=== PATIENT | female | born 1970 | race Caucasian/White ===

== ENCOUNTER 2018-01-01 15:17 | Emergency (ER) | payer OTHER ==
[~2018-01-01] VITALS: Ht 165.1 cm; Wt 83.9 kg
== END 2018-01-01 17:39 | disposition home or self-care (01) ==
LOC: ER 15:17
DX: I10 Essential (primary) hypertension (principal)

== ENCOUNTER 2022-10-19 00:11 | Emergency (ER) | payer OTHER ==
[~2022-10-19] VITALS: Ht 165.1 cm; Wt 91.6 kg
[2022-10-19] MEDS ORDERED: PEPCID AC20 MG PO (03:52)
[2022-10-19] MEDS ORDERED: LEVSIN/SL0.125 MG SL (03:52)
== END 2022-10-19 04:06 | disposition home or self-care (01) ==
LOC: ER 00:11
DX: R10.11 Right upper quadrant pain (principal); K80.20 Calculus of gallbladder without cholecystitis without obstruction; K76.0 Fatty (change of) liver, not elsewhere classified; Z88.2 Allergy status to sulfonamides; Z88.1 Allergy status to other antibiotic agents; R11.0 Nausea

== ENCOUNTER 2022-10-27 11:18 | Inpatient (IN) | payer OTHER ==
[~2022-10-27] VITALS: Ht 165.1 cm; Wt 90.7 kg
[~2022-10-27 11:18] MED LIST: LEVSIN/SL0.125 MG SL; PEPCID AC20 MG PO
== END 2022-10-29 13:11 | disposition home or self-care (01) | DRG 419 ==
LOC: ER 11:18 → SEC-K 17:38 → MEDJ 17:38
PROVIDERS: Surgery; ADMIT Internal Medicine; ATTEND Internal Medicine
PROC: BF37ZZZ Magnetic Resonance Imaging (MRI) of Pancreas (ICD-10-PCS; 2022-10-27)
PROC: BW40ZZZ Ultrasonography of Abdomen (ICD-10-PCS; 2022-10-27)
PROC: 0FT44ZZ Resection of Gallbladder, Percutaneous Endoscopic Approach (ICD-10-PCS; principal; 2022-10-28 20:00)
DX: K80.10 Calculus of gallbladder with chronic cholecystitis without obstruction (principal); E80.6 Other disorders of bilirubin metabolism; R74.01 Elevation of levels of liver transaminase levels; Z88.2 Allergy status to sulfonamides

== ENCOUNTER 2023-01-12 20:06 | Emergency (ER) | payer OTHER ==
[~2023-01-12] VITALS: Ht 160 cm; Wt 88.5 kg
== END 2023-01-12 22:57 | disposition home or self-care (01) ==
LOC: ER 20:06
DX: J02.9 Acute pharyngitis, unspecified (principal); Z20.822 Contact with and (suspected) exposure to COVID-19; Z88.2 Allergy status to sulfonamides

== ENCOUNTER 2024-09-23 11:58 | Emergency (ER) | payer OTHER ==
[~2024-09-23] VITALS: Ht 167.6 cm; Wt 82.1 kg
[2024-09-23] MEDS ORDERED: ASPIRIN 325 MG TABLET.EC PO STA (14:07)
[2024-09-23 14:41] LABS: HEMATOCRIT 39.2 % (36.0-45.00); HEMOGLOBIN 13.4 g/dL (12.0-15.00); MEAN CELL VOLUME 89.6 fL (80.00-100.00); MEAN CORPUSCULAR HEMOGLOBIN 30.7 pg (27.00-32.0); MEAN CORPUSCULAR HGB CONC 34.2 g/dl (32.0-36.0); PLATELET COUNT 220 K/uL (150-450); RED BLOOD COUNT 4.37 M/uL (4.00-6.00); RED CELL DISTRIBUTION WIDTH 13.2 % (11.5-14.5)
[2024-09-23 15:06] LABS: CALCIUM 9.2 mg/dL (8.5-10.1); CREATININE SERUM 0.75 mg/dL (0.55-1.02); GFR 80.23; POTASSIUM 3.78 mEq/L (3.5-5.1)
[2024-09-23 15:25] LABS: PARTIAL THROMBOPLASTIN TIME 28.1 SECONDS (22.0-34.0); PROTHROMBIN TIME 10.9 SECONDS (9.0-11.5)
[2024-09-23] MEDS ORDERED: KETOROLAC TROMETHAMINE 30 MG VIAL IV ONE (19:00)
[2024-09-23] MEDS ORDERED: KETOROLAC TROMETHAMINE 30 MG VIAL ONE (19:06)
== END 2024-09-23 21:08 | disposition home or self-care (01) ==
LOC: ER 12:00
PROVIDERS: Emergency Medicine
DX: R07.89 Other chest pain (principal); Z88.2 Allergy status to sulfonamides